=== PATIENT | male | born 1965 | race Caucasian/White ===

== ENCOUNTER 2021-04-16 18:05 | Emergency (ER) | payer BC ==
[2021-04-16] MEDS ORDERED: Sodium Chloride 0.9% 1,000 ML IV ONE (18:42)
[2021-04-16] MEDS ORDERED: Sodium Chloride 0.9% 10 ML Syringe FLUSH PRN (18:42)
[2021-04-16] MEDS ORDERED: Ondansetron 4 MG/2 ML SDV IVPUSH ONE (19:26)
--- NOTE | 2021-04-16 19:28 | EDM.PDOC ---
ED HPI GENERAL MEDICAL PROBLEM - General Chief Complaint: Gastrointestinal Problem Stated Complaint: VOMMITING DIARRHEA CHILLS Time Seen by Provider: 04/16/21 18:31 Source of Information: Reports: Patient History Limitations: Reports: No Limitations - History of Present Illness INITIAL COMMENTS - FREE TEXT/NARRATIVE: 56-year-old male presents the emergency department today with complaints of nausea, vomiting and diarrhea that started this morning. Denies any abdominal pain associated with the nausea or vomiting. Patient states he also has had a bit of a cough and very mild shortness of breath that started this morning as well. States he has had the chills for the past couple of days. Denies any body aches, loss of sense of taste and smell, headache or sore throat. Patient states he was exposed to Covid about 3 weeks ago and tested negative about 2 weeks ago. He states he has been vaccinated and is otherwise healthy. He does admit to smoking. Generalized Pain Score (Numeric/FACES): 8 - Related Data Allergies Allergy/AdvReac Type Severity Reaction Status Date / Time Penicillins Allergy Rash Verified 04/16/21 18:31 Home Meds: Home Meds . [No Known Home Meds] 04/16/21 [History] Past Medical History - Past Health History Medical/Surgical History: Denies Medical/Surgical History Social & Family History - Tobacco Use Tobacco Use Status *Q: Never Tobacco User ED ROS GENERAL - Review of Systems Review Of Systems: Comprehensive ROS is negative, except as noted in HPI. ED EXAM, GI/ABD - Physical Exam Exam: See Below Exam Limited By: No Limitations General Appearance: Alert, WD/WN, No Apparent Distress Ears: Normal External Exam, Hearing Grossly Normal Nose: Normal Inspection Throat/Mouth: Normal Inspection, Normal Lips, Normal Voice, No Airway Compromise Head: Atraumatic Neck: Normal Inspection, Supple Respiratory/Chest: No Respiratory Distress, Lungs Clear, Normal Breath Sounds, No Accessory Muscle Use, Chest Non-Tender Cardiovascular: Normal Peripheral Pulses, No Edema, No Murmur, Tachycardia GI/Abdominal Exam: Normal Bowel Sounds, Soft, Non-Tender, No Distention (Male) Exam: Deferred Rectal (Males) Exam: Deferred Back Exam: Normal Inspection Extremities: Normal Inspection Neurological: Alert, Oriented, Normal Cognition Psychiatric: Normal Affect, Normal Mood Skin Exam: Warm, Dry, Intact, Normal Color, No Rash Lymphatic: No Adenopathy #1 Interpretation EKG Date: 04/16/21 Time: 19:00 Rhythm: NSR Rate (Beats/Min): 109 [place]: Normal P-Wave: Present QRS: Normal ST-T: Normal QT: Normal EKG Interpretation Comments: Per Dr. Lantigua interpretation: Sinus tachycardia at 109 bpm; ventricular premature complex; anterior septal infarct, old Course - Vital Signs Text/Narrative:: As stated above, patient presents with nausea, vomiting, diarrhea and chills. Physical exam is essentially unremarkable. Patient skin is hot to touch however so he does feel febrile. And he is mildly tachycardic. Will obtain lab studies to include a CBC, CMP, C-reactive protein, magnesium, D-dimer as well as a Covid swab. We will also obtain an EKG and a portable chest x-ray. Patient will receive a liter of normal saline bolus as well as Zofran for the nausea as he is likely dehydrated. Last Recorded V/S: Last Vital Signs Temp 98.9 F 04/16/21 18:28 Pulse 110 H 04/16/21 18:28 Resp 18 04/16/21 18:28 BP 118/81 04/16/21 18:28 Pulse Ox 94 L 04/16/21 18:28 - Orders/Labs/Meds Orders: Active Orders 24 hr Category Date Time Status CTA Chest W WO Contrast [Ang Chest] [CT] Stat Exams 04/16/21 20:58 Taken Chest 1V Frontal [CR] Stat Exams 04/16/21 18:42 Taken Sodium Chloride 0.9% [Saline Flush] Med 04/16/21 18:42 Active 10 ml FLUSH ASDIRECTED PRN Saline Lock Insert [OM.PC] Stat Oth 04/16/21 18:42 Ordered Medication Orders Sodium Chloride (Sodium Chloride 0.9% 10 Ml Syringe) 10 ml FLUSH ASDIRECTED PRN PRN Reason: Keep Vein Open Last Admin: 04/16/21 19:27 Dose: 10 ml Documented by: DIGNA Labs: Laboratory Tests 04/16/21 04/16/21 04/16/21 Range/Units 18:33 19:22 19:22 WBC 6.54 (4.23-9.07) K/mm3 RBC 4.92 (4.63-6.08) M/mm3 Hgb 15.7 (13.7-17.5) gm/dl Hct 48.0 (40.1-51.0) % MCV 97.6 H (79.0-92.2) fl MCH 31.9 (25.7-32.2) pg MCHC 32.7 (32.2-35.5) g/dl RDW Std Deviation 47.7 H (35.1-43.9) fL Plt Count 228 (163-337) K/mm3 MPV 9.9 (9.4-12.3) fl Neut % (Auto) 92.1 H (34.0-67.9) % Lymph % (Auto) 1.4 L (21.8-53.1) % [place] % (Auto) 5.7 (5.3-12.2) % Eos % (Auto) 0.3 L (0.8-7.0) Baso % (Auto) 0.2 (0.1-1.2) % Neut # (Auto) 6.03 H (1.78-5.38) K/mm3 Lymph # (Auto) 0.09 L (1.32-3.57) K/mm3 [place] # (Auto) 0.37 (0.30-0.82) K/mm3 Eos # (Auto) 0.02 L (0.04-0.54) K/mm3 Baso # (Auto) 0.01 (0.01-0.08) K/mm3 Manual Slide Review Abnormal smear D-Dimer, Quantitative 1.89 H (0.19-0.50) mg/L Sodium (136-145) mEq/L Potassium (3.5-5.1) mEq/L Chloride (98-107) mEq/L Carbon Dioxide (21-32) mEq/L Anion Gap (5-15) BUN (7-18) mg/dL Creatinine (0.7-1.3) mg/dL Est Cr Clr Drug Dosing mL/min Estimated GFR (MDRD) (>60) mL/min BUN/Creatinine Ratio (14-18) Glucose (70-99) mg/dL Calcium (8.5-10.1) mg/dL Magnesium (1.8-2.4) mg/dL Total Bilirubin (0.2-1.0) mg/dL AST (15-37) U/L ALT (16-63) U/L Alkaline Phosphatase (46-116) U/L C-Reactive Protein (<1.0) mg/dL Total Protein (6.4-8.2) g/dl Albumin (3.4-5.0) g/dl Globulin gm/dL Albumin/Globulin Ratio (1-2) SARS-CoV-2 RNA (RAJAN) Negative (NEGATIVE) 04/16/21 Range/Units 19:22 WBC (4.23-9.07) K/mm3 RBC (4.63-6.08) M/mm3 Hgb (13.7-17.5) gm/dl Hct (40.1-51.0) % MCV (79.0-92.2) fl MCH (25.7-32.2) pg MCHC (32.2-35.5) g/dl RDW Std Deviation (35.1-43.9) fL Plt Count (163-337) K/mm3 MPV (9.4-12.3) fl Neut % (Auto) (34.0-67.9) % Lymph % (Auto) (21.8-53.1) % [place] % (Auto) (5.3-12.2) % Eos % (Auto) (0.8-7.0) Baso % (Auto) (0.1-1.2) % Neut # (Auto) (1.78-5.38) K/mm3 Lymph # (Auto) (1.32-3.57) K/mm3 [place] # (Auto) (0.30-0.82) K/mm3 Eos # (Auto) (0.04-0.54) K/mm3 Baso # (Auto) (0.01-0.08) K/mm3 Manual Slide Review D-Dimer, Quantitative (0.19-0.50) mg/L Sodium 135 L (136-145) mEq/L Potassium 3.8 (3.5-5.1) mEq/L Chloride 102 (98-107) mEq/L Carbon Dioxide 21 (21-32) mEq/L Anion Gap 15.8 H (5-15) BUN 14 (7-18) mg/dL Creatinine 1.0 (0.7-1.3) mg/dL Est Cr Clr Drug Dosing 61.58 mL/min Estimated GFR (MDRD) > 60 (>60) mL/min BUN/Creatinine Ratio 14.0 (14-18) Glucose 123 H (70-99) mg/dL Calcium 8.6 (8.5-10.1) mg/dL Magnesium 1.9 (1.8-2.4) mg/dL Total Bilirubin 0.5 (0.2-1.0) mg/dL AST 14 L (15-37) U/L ALT 20 (16-63) U/L Alkaline Phosphatase 59 (46-116) U/L C-Reactive Protein 4.5 H* (<1.0) mg/dL Total Protein 7.0 (6.4-8.2) g/dl Albumin 3.7 (3.4-5.0) g/dl Globulin 3.3 gm/dL Albumin/Globulin Ratio 1.1 (1-2) SARS-CoV-2 RNA (RAJAN) (NEGATIVE) Meds: Medications Generic Name Dose Route Start Last Admin Trade Name Freq PRN Reason Stop Dose Admin Sodium Chloride 10 ml 04/16/21 18:42 04/16/21 19:27 Sodium Chloride 0.9% 10 Ml Syringe FLUSH 10 ml ASDIRECTED PRN Administration Keep Vein Open Discontinued Medications Generic Name Dose Route Start Last Admin Trade Name Freq PRN Reason Stop Dose Admin Sodium Chloride 1,000 mls @ 999 mls/hr 04/16/21 18:42 04/16/21 19:23 Normal Saline IV 04/16/21 19:42 999 mls/hr ONETIME ONE Administration Ketorolac Tromethamine 30 mg 04/16/21 20:58 04/16/21 21:04 Ketorolac 30 Mg/Ml Sdv IVPUSH 04/16/21 20:59 30 mg ONETIME ONE Administration Ondansetron HCl 4 mg 04/16/21 19:26 04/16/21 19:36 Ondansetron 4 Mg/2 Ml Sdv IVPUSH 04/16/21 19:27 4 mg ONETIME ONE Administration - Re-Assessments/Exams Free Text/Narrative Re-Assessment/Exam: 04/16/21 21:06 Hematology reveals a WBC of 6.54, hemoglobin 15.7, hematocrit 48.0, platelet count 228 Coagulation reveals a D-dimer of 1.89 Chemistry reveals a sodium of 135, potassium 3.8, anion gap 15.8, BUN 14, creatinine 1.0, GFR greater than 60, glucose 123, magnesium 1.9, AST 14, ALT 20, C-reactive protein 4.5 Serology reveals that the patient is Covid negative Patient states he is feeling much better after receiving a liter of IV fluids and Zofran for nausea. He is no longer nauseated. However he now complains of a headache that is generalized. We will give the patient Toradol 30 mg IV. Discussed the patient's lab studies with him. Will obtain CTA of the lungs as D-dimer is elevated. I do still highly suspect that the patient does have Covid however symptoms only started today so it may be too early to detect. 04/16/21 22:45 [facility] radiologist impression: Pulmonary arteries: Pulmonary arteries are well-opacified. No embolism malalignment. Aorta: Thoracic aorta is unremarkable in course and caliber. Lungs: Lung palm bilaterally show features of moderate emphysema. No acute infiltrates or focal consolidation. No edema. Minor posterior atelectasis. Pleural spaces: Unremarkable. No pneumothorax. No pleural effusion. Heart: Normal heart size. No pericardial effusion. Mild coronary artery atherosclerotic calcium. Lymph nodes: No hilar or mediastinal adenopathy present Kidneys and ureters: Incidental findings of the left renal low-attenuation focus most consistent with a benign 2.6 cm cyst. Bone/joints: Unremarkable. No acute fracture. Soft tissues: Unremarkable. Impression: 1. Moderate emphysema. 2. No infiltrates or edema. Minor posterior lung base atelectasis. 3. No pulmonary arterial embolism. 4. Normal heart size. Coronary artery atherosclerotic calcium. 5. Posterior left renal mid pole lowattenuation 2.6 cm focus most consistent with benign cyst. 04/16/21 22:55 Patient will be discharged home with recommendations that he quarantine as I do suspect he may still have Covid. He states that he will Covid tested at the Covid drive-through clinic in approximately 2 days. Patient is agreeable to this plan. Departure - Departure Time of Disposition: 22:56 Disposition: Home, Self-Care 01 Condition: Good Clinical Impression: Nausea & vomiting Qualifiers: Vomiting type: unspecified Vomiting Intractability: unspecified Qualified Code(s): R11.2 - Nausea with vomiting, unspecified - Discharge Information Referrals: Ced Rivera MD [Primary Care Provider] - Forms: ED Department Discharge, ED Return to Work/School Form Additional Instructions: You were seen in the emergency department this evening with nausea and vomiting, fever and chills. Full work-up was completed which included chest x-ray, EKG, lab studies and testing for Covid. CT scan of the lungs was also completed. At this time Covid test was negative however as discussed I do suspect he may still have Covid. Recommend retesting in 2 days time if your symptoms continue. Lab work did not show any sign of infection. Chest x-ray does not show any sign of pneumonia. CT scan was completed and was negative for a blood clot in your lungs. This test was completed due to an elevation in one of your lab markers. Recommend staying home and he may return to work Wednesday if next Covid test is negative. Get plenty of rest and drink plenty of fluids. May take Tylenol or ibuprofen for headache or fever or body aches. Should your condition worsen or change, do not hesitate returning to the emergency department. Sepsis Event Note (ED) - Evaluation Sepsis Screening Result: No Definite Risk - Focused Exam Vital Signs: Vital Signs Temp Pulse Resp BP Pulse Ox 04/16/21 18:28 98.9 F 110 H 18 118/81 94 L - My Orders Last 24 Hours: My Active Orders 04/16/21 18:42 Chest 1V Frontal [CR] Stat Sodium Chloride 0.9% [Saline Flush] 10 ml FLUSH ASDIRECTED PRN Saline Lock Insert [OM.PC] Stat 04/16/21 20:58 CTA Chest W WO Contrast [Ang Chest] [CT] Stat - Assessment/Plan Last 24 Hours: My Active Orders 04/16/21 18:42 Chest 1V Frontal [CR] Stat Sodium Chloride 0.9% [Saline Flush] 10 ml FLUSH ASDIRECTED PRN Saline Lock Insert [OM.PC] Stat 04/16/21 20:58 CTA Chest W WO Contrast [Ang Chest] [CT] Stat
[2021-04-16] MEDS ORDERED: Ketorolac 30 MG/ML SDV IVPUSH ONE (20:58)
--- NOTE | 2021-04-17 05:59 | CR ---
Chest: Portable view of the chest was obtained. Comparison: No prior chest imaging is available, subsequent chest CT was utilized. Heart size and mediastinum are within normal limits. Lungs are clear with no acute parenchymal change. Bony structures show nothing acute. Impression: 1. Nothing acute is appreciated on portable chest x-ray. Diagnostic code #1
--- NOTE | 2021-04-17 06:02 | CT ---
CT chest Technique: Multiple axial sections through the chest were obtained. Intravenous contrast was utilized. Study has been performed as a pulmonary angiogram protocol. Comparison: Prior chest x-ray performed earlier on the same day (7:10 PM). No prior chest CT is available. Findings: Pulmonary arteries are well opacified. No filling defects are seen to indicate pulmonary embolism. Thoracic aorta shows no aneurysm. Mediastinum shows no adenopathy. No pericardial thickening is seen. Heart is normal in size. Atherosclerotic change is seen within the coronary arteries. Lungs show no acute parenchymal change. No pulmonary nodule is seen. No pleural effusion is seen. Visualized upper abdominal structures show a left renal cyst measuring 2.7 cm. Bone window settings were reviewed. No acute osseous abnormality is appreciated. Impression: 1. No findings of pulmonary embolism. 2. Incidental cyst within the left kidney. 3. Nothing acute is seen on CT study of the chest. Diagnostic code #2 I agree with preliminary report from [facility], finalized on 04/16/21, 10:48 PM [facility]IL [employer], code 1
== END 2021-04-16 23:09 | disposition home or self-care (01) ==
LOC: JD.ED 18:05
DX: R11.2 Nausea with vomiting, unspecified (principal); R00.0 Tachycardia, unspecified; Z88.0 Allergy status to penicillin; Z20.822 Contact with and (suspected) exposure to COVID-19
CPT/HCPCS: 36415; 71045; 71275; 80053; 83735; 85025; 85379; 86140; 87635; 93005; 96374; 96375; 99285; J1885; J2405; J7030; U0002